=== PATIENT | male | born 1965 | race Caucasian/White ===

== ENCOUNTER → 2020-04-28 07:01 | Outpatient (CLI) | payer OTHER, SELFPAY ==
[2020-04-28 10:06] LABS: ALB/GLOB Ratio 1.2 RATIO (0.9-2.4); AST(SGOT) 10 U/L (15-37); Alanine Aminotransfer ALT/SGPT 32 U/L (16-61); Albumin, Serum 3.9 g/dL (3.2-5.0); Alkaline Phosphatase 71 U/L (45-117); Anion Gap 4 (5-15); BUN 19 mg/dL (7-18); BUN/Creat Ratio 20.2 RATIO (10-20); Calcium,Total 8.8 mg/dL (8.5-10.1); Chloride 110 mmol/L (98-107); Cholesterol 152 mg/dL (200); Creatinine, Serum 0.94 mg/dL (0.70-1.30); EST Glomerular Filtration Rate 89 mL/min (>60); Est Glom Filt Rate - Afr Amer 107 mL/min (>60); Globulin 3.2 g/dL (2.2-4.2); Glucose 103 mg/dL (74-106); High Density Lipoprotein 44 mg/dL; Potassium 4.2 mmol/L (3.5-5.1); Protein, Total 7.1 g/dL (6.4-8.2); Sodium Level 140 mmol/L (136-145); Triglycerides 99 mg/dL; Very Low Density Lipoprotein 20 mg/dL (5-40)
== END ==
DX: R79.89 Other specified abnormal findings of blood chemistry (principal); R74.8 Abnormal levels of other serum enzymes; E78.5 Hyperlipidemia, unspecified
CPT/HCPCS: 36415; 80053; 80061

== ENCOUNTER → 2021-05-20 07:00 | Outpatient (CLI) | payer BC, SELFPAY ==
[2021-05-20 10:11] LABS: Absolute Neutrophil Count 5.4 X10^3/uL (2.0-7.7); Basophil# 0.08 X10^3/uL; Basophil% 0.9 % (0-1); Eosinophil# 0.59 X10^3/uL; Eosinophils% 6.3 % (0-5); Hematocrit 41.6 % (40-54); Hemoglobin 14.1 g/dL (13.0-16.5); Lymphocyte % 26.8 % (19-41); Mean Corp Hgb Conc 33.9 g/dL (32-36); Mean Corpuscular Hgb 29.4 pg (27.0-32.0); Mean Corpuscular Volume 86.8 fL (80-94); Mean Platelet Vol. 10.7 fl (6.2-12.0); Monocyte% 7.5 % (0-10); NRBC Flagged by Analyzer 0 % (0-5); Neutrophil # 5.44 X10^3/uL (2.7-7.7); Neutrophil % 58.3 % (47-70); Platelet Count 290 K/mm3 (150-450); RBC Distribution Width CV 12.6 % (11.6-14.6); RBC Distribution Width SD 39.8 fl (35.1-43.9); Red Blood Count 4.79 M/mm3 (4.6-6.2); White Blood Count 9.3 K/mm3 (4.4-11.0)
[2021-05-20 10:30] LABS: ALB/GLOB Ratio 1.2 RATIO (0.9-2.4); AST(SGOT) 7 U/L (15-37); Alanine Aminotransfer ALT/SGPT 26 U/L (16-61); Albumin, Serum 3.8 g/dL (3.2-5.0); Alkaline Phosphatase 79 U/L (45-117); Anion Gap 5 (5-15); BUN 16 mg/dL (7-18); BUN/Creat Ratio 18.1 RATIO (10-20); Calcium,Total 8.7 mg/dL (8.5-10.1); Chloride 105 mmol/L (98-107); Cholesterol 126 mg/dL (200); Creatinine, Serum 0.88 mg/dL (0.70-1.30); EST Glomerular Filtration Rate 95 mL/min (>60); Est Glom Filt Rate - Afr Amer 115 mL/min (>60); Globulin 3.1 g/dL (2.2-4.2); Glucose 84 mg/dL (74-106); High Density Lipoprotein 36 mg/dL; PSA,Total - Annual Screen 1.59 ng/mL (0.00-4.00); Potassium 3.7 mmol/L (3.5-5.1); Protein, Total 6.9 g/dL (6.4-8.2); Sodium Level 137 mmol/L (136-145); Triglycerides 110 mg/dL; Very Low Density Lipoprotein 22 mg/dL (5-40)
== END ==
DX: I10 Essential (primary) hypertension (principal); E78.5 Hyperlipidemia, unspecified; Z13.0 Encounter for screening for diseases of the blood and blood-forming organs and certain disorders involving the immune mechanism; Z12.5 Encounter for screening for malignant neoplasm of prostate
CPT/HCPCS: 36415; 80053; 80061; 84153; 85025; G0103

== ENCOUNTER 2021-10-04 08:48 | Outpatient (CLI) | payer BC, SELFPAY ==
--- NOTE | 2021-10-04 08:59 | ECHOD_ITS ---
Reason For Study: ATRIAL FIB-FLUTTER Procedure This was a 2D Doppler, Color Flow transthoracic echocardiogram. Exam performed in department. Left Ventricle Normal LV size. Mild concentric left ventricular hypertrophy. Left ventricular systolic function is normal. The estimated ejection fraction is 60 %. Stage 2 diastolic dysfunction. No regional wall motion abnormalities noted. Right Ventricle Normal RV size. Normal systolic function. Atria Normal left atrium. Normal right atrium. Mitral Valve Normal mitral valve. Tricuspid Valve Normal tricuspid valve. Mild to moderate (1-2+) tricuspid valve insufficiency. Pulmonary artery systolic pressure is 38 mmHg. Aortic Valve Normal aortic valve. Pulmonic Valve Normal pulmonic valve. Great Vessels Normal aortic root. The pulmonary artery is normal size. Normal inferior vena cava. Pericardium/Pleural No pericardial effusion. MMode/2D Measurements & Calculations LVIDd: 4.4 cm IVSd: 1.2 cm Ao root diam: 3.2 cm LVIDs: 2.8 cm LVPWd: 1.3 cm RVDd: 3.1 cm FS: 37.3 % LAV(MOD-bp): 34.6 ml LVAd ap4: 30.0 cm2 SV(MOD-sp4): 63.3 ml LAV(MOD-bp) Indexed: 16.1 ml/m2 LVLd ap4: 7.6 cm LAV(MOD-sp2): 37.4 ml EDV(MOD-sp4): 95.8 ml LAV(MOD-sp4): 34.2 ml EDV(sp4-el): 99.7 ml LVAs ap4: 15.1 cm2 LVLs ap4: 5.9 cm ESV(MOD-sp4): 32.5 ml ESV(sp4-el): 32.4 ml EF(MOD-sp4): 66.1 % EF(sp4-el): 67.5 % SV(sp4-el): 67.3 ml LA A4 area: 14.4 cm2 LA dimension(2D): 3.8 cm RA A4 area: 13.7 cm2 Time Measurements MV dec time: 0.19 sec Doppler Measurements & Calculations MV E max bharat: 80.6 cm/sec Lat Peak E' Bharat: 11.6 cm/sec Med Peak E' Bharat: 9.7 cm/sec MV A max bharat: 73.3 cm/sec E/E' lat: 6.9 E/E' med: 8.3 MV E/A: 1.1 Ao V2 max: 147.8 cm/sec LV V1 max: 118.9 cm/sec PA V2 max: 110.2 cm/sec Ao max P.7 mmHg LV V1 max P.7 mmHg TR max bharat: 293.8 cm/sec TR max P.5 mmHg ECHO/Echo Complete Interpretation Summary Normal LV size. Left ventricular systolic function is normal. The estimated ejection fraction is 60 %. Mild concentric left ventricular hypertrophy. Stage 2 diastolic dysfunction. Pulmonary artery systolic pressure is 38 mmHg. Ordering Physician: Fracisco Henning Referring Physician: Fracisco Henning Performed By: Swapna Abarca RDCS
== END 2021-10-04 23:59 | disposition home or self-care (01) ==
LOC: CVS 08:57
PROVIDERS: Referring Provider Internal Medicine Cardiovascular Disease; Visit Provider Internal Medicine Cardiovascular Disease
DX: I48.0 Paroxysmal atrial fibrillation (principal); I10 Essential (primary) hypertension
CPT/HCPCS: 93306

== ENCOUNTER → 2022-01-05 | Outpatient (CLI) | payer BC, SELFPAY ==
--- NOTE | 2022-01-05 07:11 | CT_ITS ---
STUDY: CT RIGHT LOWER EXTREMITY WITHOUT CONTRAST REASON FOR EXAM: Right knee pain, surgical planning. TECHNIQUE: Transaxial CT imaging of the lower extremity was performed. Coronal and sagittal images were reformatted. Individualized dose optimization techniques were used for this CT. COMPARISON: None. FINDINGS: Knee: There is arthrosis of the medial femorotibial compartment with marginal osteophytes, subchondral cystic change and joint space narrowing (coronal reconstruction 33). There are small marginal osteophytes of the lateral femorotibial compartment with preservation of joint space. There are small marginal osteophytes of the patellofemoral compartment with preservation of joint space. There are intra-articular bodies in the intercondylar notch (coronal reconstructions 32-34). There is a joint effusion. There is a small popliteal cyst (sagittal reconstruction 48). Hip: There is mild right hip arthrosis with mild joint space narrowing of the superior lateral aspect (coronal reconstruction 69) and small subchondral cysts of the acetabulum. There is a herniation pit in the anterior aspect of the femoral head/neck junction (coronal reconstruction 61, 62). There is a focus of calcific tendinitis adjacent to the greater trochanter (coronal reconstruction 72-76). Ankle: There is an osteochondral lesion of the lateral talar dome (coronal reconstructions 31-33). There are intra-articular bodies at the posterior aspect of the tibiotalar articulation (sagittal reconstructions 30-34). Normal posterior subtalar, talar navicular and calcaneocuboid articulations. There are posterior and plantar calcaneal enthesophytes. CT/Extremity Lower without Contra IMPRESSION: Right knee osteoarthritis. Electronically Signed: Kb Melissa MD at 14:55 EDT ,
== END | disposition home or self-care (01) ==
PROVIDERS: Visit Provider Orthopaedic Surgery
DX: M17.11 Unilateral primary osteoarthritis, right knee (principal); M25.561 Pain in right knee
CPT/HCPCS: 73700

== ENCOUNTER → 2022-01-11 | Outpatient (CLI) | payer BC, SELFPAY ==
--- NOTE | 2022-01-11 07:22 | EKG12_ITS ---
Test Reason : PREOP Blood Pressure : / mmHG Vent. Rate : 080 BPM Atrial Rate : 080 BPM P-R Int : 172 ms QRS Dur : 100 ms QT Int : 382 ms P-R-T Axes : 007 -21 017 degrees QTc Int : 440 ms Normal sinus rhythm Inferior infarct , age undetermined , cannot be excluded Abnormal ECG Confirmed by MARLENY BLANKENSHIP, DEBRA ([id number]), rewrite editor ANNE MARIE PENA ([id number]) on 01/12/2022 9:11:06 AM Referred By: Constantin Batista Confirmed By:DEBRA FARMER MD
[2022-01-11 07:51] LABS: Hematocrit 43.6 % (40-54); Hemoglobin 15.3 g/dL (13.0-16.5); Mean Corp Hgb Conc 35.1 g/dL (32-36); Mean Corpuscular Hgb 29.4 pg (27.0-32.0); Mean Corpuscular Volume 83.7 fL (80-94); Mean Platelet Vol. 10.3 fl (6.2-12.0); Platelet Count 324 K/mm3 (150-450); RBC Distribution Width SD 36.5 fl (35.1-43.9); Red Blood Count 5.21 M/mm3 (4.6-6.2); White Blood Count 13.5 K/mm3 (4.4-11.0)
[2022-01-11 08:21] LABS: Anion Gap 10 (5-15); BUN 46 mg/dL (7-18); Calcium,Total 9.5 mg/dL (8.5-10.1); Chloride 101 mmol/L (98-107); Creatinine, Serum 2.88 mg/dL (0.70-1.30); EST Glomerular Filtration Rate 24 mL/min (>60); Est Glom Filt Rate - Afr Amer 29 mL/min (>60); Glucose 110 mg/dL (74-106); Potassium 3.7 mmol/L (3.5-5.1); Sodium Level 136 mmol/L (136-145)
[2022-01-11 08:27] LABS: Hemoglobin A1c 5.4 % (3.8-5.6)
== END | disposition home or self-care (01) ==
LOC: PSN 07:18
PROVIDERS: Referring Provider Physician Assistant; Visit Provider Physician Assistant
DX: Z01.810 Encounter for preprocedural cardiovascular examination (principal)
CPT/HCPCS: 36415; 80048; 83036; 85027; 93005

== ENCOUNTER → 2022-01-16 | Outpatient (CLI) | payer BC, SELFPAY ==
--- NOTE | 2022-01-16 11:00 | KNEE_PTH ---
PATIENT: RICHARD FRANKEL LOC: [facility] U#:[id number] AGE/SX: 56/M ROOM: RE01/16/[address]: Dr. Richard Boyce DO : 1965 BED: DIS: 01/16/2022 SPEC #: [id number] RECD: 01/17/22 14:55 STATUS: CHONG RETrena #: [id number] SNEHAL: 01/16/22 11:[address]: Richard Boyce DEPT: SURGICAL PATHOLOGY RECD BY: Duane Layton ENTERED: 01/18/22 09:46 SP TYPE: TOTAL KNEE OTHR DR: No Primary Care Phys [facility] Tissues: Knee, NOS Procedures: Decalcification bone/plaque Surgery Specimen Level IV HEADER OPERATION: Right total knee arthroplasty with robotic assistance PRE-OP DIAGNOSIS: Unilateral primary osteoarthritis right knee TISSUE SUBMITTED: Right knee bone and soft tissue MICROSCOPIC DIAGNOSIS Bone and tissue of right knee, total knee resection: Severe degenerative joint disease. Mild synovial hyperplasia. AM:bruce 01/20/2022 MICROSCOPIC DESCRIPTION Slides are reviewed. GROSS DESCRIPTION Received is one container designated bone and soft tissue right knee. The specimen consists of multiple fragments of heck-yellow bone measuring in aggregate 11 x 10 x 3.5 cm. Also in the specimen container are multiple fragments of yellow-white soft tissue measuring in aggregate 10 x 9 x 3.5 cm. A number of bony fragments contain articular surfaces consistent with tibial plateau and femoral condyle and displaying prominent osteophyte formation, eburnation, and bone erosion. Health Promotion Coordinator sections are submitted in two cassettes as follows: 1 - soft tissue, 2 - bone after decalcification. / SJ:bruce 01/18/2022 TC:5 [facility]: [id number], [id number]
== END | disposition home or self-care (01) ==
LOC: LABSPEC 01-18 09:57
PROVIDERS: Referring Provider Orthopaedic Surgery; Visit Provider Orthopaedic Surgery
DX: M17.11 Unilateral primary osteoarthritis, right knee (principal)
CPT/HCPCS: 88305; 88311